=== PATIENT | female | born 1970 | race Caucasian/White ===

== ENCOUNTER 2017-09-11 12:32 | Emergency (ER) | payer SELFPAY ==
--- NOTE | 2017-09-11 13:52 | RAD ---
TWO VIEWS OF THE CHEST: COMPARISON: 12/09/07. HISTORY: Felling ill for 2 weeks. Body aches that are getting worse. Shortness of breath and cough. FINDINGS: Two views of the chest show normal sized cardiomediastinal silhouette. There is no evidence of consol idation, mass, or pleural effusion. The bones are unremarkable. IMPRESSION: No evidence of acute cardiopulmonary disease. POS: [facility]
[2017-09-11] MEDS ORDERED: Acetaminophen 500 MG TAB ONE (13:58)
== END 2017-09-11 14:43 | disposition home or self-care (01) ==
LOC: ERS 12:32
DX: J20.9 Acute bronchitis, unspecified (principal); F32.9 Major depressive disorder, single episode, unspecified
CPT/HCPCS: 71046; 87804

== ENCOUNTER 2017-11-05 16:15 | Emergency (ER) | payer SELFPAY ==
[2017-11-05] MEDS ORDERED: Ondansetron HCl/PF 4 MG/2 ML Vial ONE (16:44)
[2017-11-05] MEDS ORDERED: Morphine 4 MG/ML VIAL ONE (16:44)
[2017-11-05 17:00] LABS: #Basophils 0.1 thou/uL (0.0-0.2); #Eosinphils 0.3 thou/uL (0.0-0.7); #Lymphocytes 2.7 thou/uL (1.20-3.40); #Monocytes 0.5 thou/uL (0.11-0.59); #Neutrophils 6.2 thou/uL (1.40-6.50); %Eosinophils 3.1 % (0.0-10.0); %Lymphocytes 27.8 % (21.0-51.0); %Monocytes 5.3 % (0.0-10.0); %Neutrophils 62.9 % (42.0-75.0); Hemoglobin 14.1 g/dL (12.0-16.0); Mean Corpuscular HGB CONC 33.8 g/dL (32.0-36.0); Mean Corpuscular Hemoglobin 29.5 pg (27.0-31.0); Mean Corpuscular Volume 87.4 fl (81.0-99.0); Mean Platelet Volume 6.9 fL (7.4-10.4); Platelet Count 324 thou/uL (130-400); RBC Distribution Width 12.2 % (11.5-14.5); Red Blood Cell (RBC) Count 4.79 mill/uL (4.20-5.40); White Blood Cell (WBC) Count 9.9 thou/uL (4.8-10.8)
[2017-11-05 17:11] LABS: INR-International Normal Ratio 0.9; PTT 26.2 SEC (22.9-36.1); Prothrombin Time 12.3 SEC (12.0-14.7)
[2017-11-05 17:19] LABS: ALT (SGPT) 38 U/L (8-55); AST (SGOT) 22 U/L (5-34); Albumin 4.2 g/dL (3.5-5.0); Alkaline Phosphatase 107 U/L (40-150); Anion Gap 13 mmol/L (10-20); BUN (Urea Nitrogen) 15 mg/dL (7.0-18.7); Bilirubin, Total 0.3 mg/dL (0.2-1.2); Calc. Creatinine Clearance 0 mL/min (70-130); Calcium 9.3 mg/dL (7.8-10.44); Carbon Dioxide 24 mmol/L (22-29); Chloride 105 mmol/L (98-107); Estimated GFR-MDRD 76; Glucose 142 mg/dL (70-105); Potassium 4.1 mmol/L (3.5-5.1); Protein, Total 7.2 g/dL (6.0-8.3); Sodium 138 mmol/L (136-145)
[2017-11-05 17:21] LABS: Acetaminophen Less than 6.0 mcg/mL (10.0-30.0); Alcohol Less than 10 mg/dL (Less than 10); Salicylate Less than 8.0 mg/dL (15.0-30.0)
[2017-11-05 17:23] LABS: CKMB 1.2 ng/mL (0-6.6); Troponin I Less than 0.010 ng/mL (< 0.028)
--- NOTE | 2017-11-05 18:35 | RAD ---
PORTABLE UPRIGHT FRONTAL CHEST RADIOGRAPH: 11/05/17 COMPARISON: 10/05/16. HISTORY: Chest pain. FINDINGS: Stable prominence of the cardiac silhouette. Stable mild diffuse increased linear interstitial densit y. No pneumothorax, pleural fluid, focal consolidation or alveolar edema. IMPRESSION: No acute findings. POS: [facility]
[2017-11-05] MEDS ORDERED: HYDROcodone/Acetaminophen 5/325 mg Tablet ONE (19:11)
[2017-11-05] MEDS ORDERED: Amoxicillin/Potassium Clav 875 MG TAB ONE ×2 (19:46→20:20)
[2017-11-05] MEDS ORDERED: Ketorolac Tromethamine 30 MG/ML VIAL ONE (19:46)
[2017-11-05] MEDS ORDERED: Methocarbamol 500 MG TAB PO SCH (20:00)
[2017-11-05] MEDS ORDERED: Amoxicillin/Potassium Clav 875 MG TAB PO SCH (20:00)
== END 2017-11-05 20:28 | disposition home or self-care (01) ==
LOC: ERS 16:15
DX: H60.92 Unspecified otitis externa, left ear (principal); H83.02 Labyrinthitis, left ear; M54.30 Sciatica, unspecified side; M26.602 Left temporomandibular joint disorder, unspecified; F32.9 Major depressive disorder, single episode, unspecified
CPT/HCPCS: 71045; 80053; 80307; 82553; 84484; 85025; 85610; 85730; 93005; 96374; 96375; J1885; J2270; J2405

== ENCOUNTER 2018-03-01 08:42 | Emergency (ER) | payer SELFPAY ==
[2018-03-01 09:28] LABS: #Basophils 0.1 thou/uL (0.0-0.2); #Eosinphils 0.2 thou/uL (0.0-0.7); #Lymphocytes 2.8 thou/uL (1.20-3.40); #Monocytes 0.5 thou/uL (0.11-0.59); #Neutrophils 5.2 thou/uL (1.40-6.50); %Basophils 1.2 % (0.0-1.0); %Eosinophils 2.4 % (0.0-10.0); %Lymphocytes 32.3 % (21.0-51.0); %Monocytes 5.1 % (0.0-10.0); Hemoglobin 14.4 g/dL (12.0-16.0); Mean Corpuscular HGB CONC 33.8 g/dL (32.0-36.0); Mean Corpuscular Hemoglobin 29.3 pg (27.0-31.0); Mean Corpuscular Volume 86.6 fL (78.0-98.0); Mean Platelet Volume 6.9 fL (7.4-10.4); Platelet Count 345 thou/uL (130-400); RBC Distribution Width 12.4 % (11.5-14.5); Red Blood Cell (RBC) Count 4.91 mill/uL (4.20-5.40); White Blood Cell (WBC) Count 8.8 thou/uL (4.8-10.8)
--- NOTE | 2018-03-01 09:46 | RAD ---
CHEST 1 VIEW: Date: 03/01/18 HISTORY: 48-year-old female with history of chest pain. COMPARISON: 11/05/17. FINDINGS: Heart size is normal. There is some rotation to the right. No confluent pneumonia, overt edema, or pl eural effusion. IMPRESSION: No significant acute intrathoracic disease. Rotation to the right. Stable from prior study. Atheroscl erosis of aorta. POS: [facility]
[2018-03-01 09:51] LABS: ALT (SGPT) 47 U/L (8-55); AST (SGOT) 30 U/L (5-34); Albumin 4.4 g/dL (3.5-5.0); Alkaline Phosphatase 118 U/L (40-150); Anion Gap 14 mmol/L (10-20); BUN (Urea Nitrogen) 14 mg/dL (7.0-18.7); Bilirubin, Total 0.4 mg/dL (0.2-1.2); CK (CPK) 146 U/L (29-168); Calc. Creatinine Clearance 0 mL/min (70-130); Calcium 9.8 mg/dL (7.8-10.44); Carbon Dioxide 23 mmol/L (22-29); Chloride 104 mmol/L (98-107); Estimated GFR-MDRD 68; Globulin 3.3 g/dL (2.4-3.5); Glucose 166 mg/dL (70-105); Potassium 3.8 mmol/L (3.5-5.1); Protein, Total 7.7 g/dL (6.0-8.3); Sodium 137 mmol/L (136-145)
[2018-03-01] MEDS ORDERED: Aspirin 325 MG TAB ONE (09:52)
[2018-03-01 09:54] LABS: CKMB 1.2 ng/mL (0-6.6); Troponin I Less than 0.010 ng/mL (< 0.028)
[2018-03-01] MEDS ORDERED: Ketorolac Tromethamine 30 MG/ML VIAL ONE (10:19)
[2018-03-01] MEDS ORDERED: Ondansetron ODT 4 MG TAB ONE ×2 (10:19→13:02)
[2018-03-01] MEDS ORDERED: Ondansetron HCl/PF 4 MG/2 ML Vial ONE (13:02)
[2018-03-01] MEDS ORDERED: Acetaminophen 500 MG TAB ONE (13:02)
[2018-03-01 13:05] LABS: Troponin I Less than 0.010 ng/mL (< 0.028)
== END 2018-03-01 14:39 | disposition home or self-care (01) ==
LOC: ERS 08:42
DX: R07.89 Other chest pain (principal); F32.9 Major depressive disorder, single episode, unspecified
CPT/HCPCS: 36415; 71045; 80053; 82550; 82553; 84484; 85025; 93005; 96374; J1885; J2405; Q0162

== ENCOUNTER 2019-06-21 10:03 | Inpatient (IN) | payer SELFPAY ==
--- NOTE | 2019-06-21 10:47 | RAD ---
XR Chest 1 View Portable HISTORY: Lightheadedness. Blurred vision COMPARISON: 03/01/2018 FINDINGS: The heart size is enlarged. The lungs are well expanded without focal areas of consolidatio n, pneumothorax or pleural effusions. There is no evidence of jim pulmonary edema. IMPRESSION: No radiographic evidence of acute cardiopulmonary process.
[2019-06-21 10:48] LABS: #Basophils 0.1 thou/uL (0.0-0.2); #Eosinphils 0.2 thou/uL (0.0-0.7); #Lymphocytes 1.9 thou/uL (1.20-3.40); #Monocytes 0.4 thou/uL (0.11-0.59); #Neutrophils 4.3 thou/uL (1.40-6.50); %Basophils 1.6 % (0.0-1.0); %Eosinophils 2.7 % (0.0-10.0); %Lymphocytes 26.8 % (21.0-51.0); %Monocytes 6.2 % (0.0-10.0); %Neutrophils 62.7 % (42.0-75.0); Hemoglobin 15.9 g/dL (12.0-16.0); Mean Corpuscular HGB CONC 32.5 g/dL (32.0-36.0); Mean Corpuscular Hemoglobin 28.6 pg (27.0-31.0); Mean Corpuscular Volume 88.1 fL (78.0-98.0); Mean Platelet Volume 8.6 fL (7.4-10.4); Platelet Count 284 thou/uL (130-400); RBC Distribution Width 12.5 % (11.5-14.5); Red Blood Cell (RBC) Count 5.56 mill/uL (4.20-5.40); White Blood Cell (WBC) Count 6.9 thou/uL (4.8-10.8)
[2019-06-21 10:56] LABS: BHCG - Serum Negative (NEGATIVE)
[2019-06-21 10:57] LABS: Pregs Control Background? CLEAR/WHITE (CLR/WHITE); Pregs Control Bar Appear? YES (CONTROL BAR)
[2019-06-21 11:02] LABS: Base Excess-Venous -3.6 mmol/L (-2.0 to 3.0); Bicarbonate (HCO3v) 21.8 mmol/L (22.0-28.0); Calcium, Ionized 1.12 mmol/L (See Comments:); Chloride 97 mmol/L (98-107); Hemoglobin - Calc 15.4 g/dL (12.0-16.0); Potassium 4.5 mmol/L (3.5-5.1); Sodium 131 mmol/L (138-145); vO2 Saturation-calc 55.1 % (60.0-85.0)
[2019-06-21 11:11] LABS: CKMB 1.5 ng/mL (0-6.6)
[2019-06-21 11:25] LABS: ALT (SGPT) 37 U/L (8-55); AST (SGOT) 27 U/L (5-34); Albumin 4.8 g/dL (3.5-5.0); Alkaline Phosphatase 177 U/L (40-110); Anion Gap 23 mmol/L (10-20); BUN (Urea Nitrogen) 8 mg/dL (7.0-18.7); Bilirubin, Total 0.6 mg/dL (0.2-1.2); CK (CPK) 116 U/L (29-168); Calc. Creatinine Clearance 0 mL/min (70-130); Calcium 9.9 mg/dL (7.8-10.44); Carbon Dioxide 19 mmol/L (22-29); Chloride 90 mmol/L (98-107); Estimated GFR-MDRD 36; Lipase 44 U/L (8-78); Magnesium 2.1 mg/dL (1.6-2.6); Phosphorus 3.5 mg/dL (2.3-4.7); Potassium 4.2 mmol/L (3.5-5.1); Protein, Total 8.8 g/dL (6.0-8.3); Sodium 128 mmol/L (136-145)
[2019-06-21 11:27] LABS: Bacteria/HPF None Seen HPF (None Seen); Bilirubin Negative (Negative); Blood, Urine Negative (Negative); Clarity Clear (Clear); Glucose, Urine (Dipstick) Greater than 1000 mg/dL (Negative); Leukocyte 250 Leu/uL (Negative); Nitrite Negative (Negative); Protein, Urine (Dipstick) Negative (Neg-Trace); Urobilinogen Normal mg/dL (Less than 2); Yeast-Budding Rare HPF (None Seen)
[2019-06-21 11:42] LABS: Glucose 747 mg/dL (70-105)
[2019-06-21] MEDS ORDERED: HUMULIN R 100 UNITS in Sodium Chloride 0.9% 100 ML IVPB SCH ×3 (12:07→16:45)
[2019-06-21] MEDS ORDERED: Dextrose 5% in Water 1,000 ML IV PRN ×3 (12:07→17:50)
[2019-06-21] MEDS ORDERED: Dextrose 50% Abboject 50 ML SYRINGE SLOW IVP PRN ×2 (12:07→14:17)
[2019-06-21] MEDS ORDERED: NS 0.9% w/ 20 MEQ KCL 1,000 ML/1,000 ML BAG IV PRN ×2 (14:17)
[2019-06-21] MEDS ORDERED: Dextrose 5 %-0.45 % NaCl 1,000 ML IV PRN ×2 (14:17→16:32)
[2019-06-21] MEDS ORDERED: Sodium Chloride 0.9% 1,000 ML IV PRN ×8 (14:17→16:32)
[2019-06-21] MEDS ORDERED: D5 1/2 NS w/20 mEq KCL 1,000 ML IV PRN ×2 (14:17→16:32)
[2019-06-21] MEDS ORDERED: Potassium Phosphate 12 MMOL in Sodium Chloride 0.9% 250 ML 250 ML IV PRN ×2 (14:18→16:55)
[2019-06-21] MEDS ORDERED: Ondansetron PF 4 MG/2 ML Vial IVP PRN ×2 (14:18→16:34)
[2019-06-21] MEDS ORDERED: Potassium Chloride 20 MEQ TAB PO PRN ×2 (14:18→16:55)
[2019-06-21] MEDS ORDERED: PHOS-NAK 1 PKT PACK PO PRN ×4 (14:18→16:55)
[2019-06-21] MEDS ORDERED: Magnesium Oxide 400 MG TAB PO PRN ×4 (14:18→16:55)
[2019-06-21] MEDS ORDERED: CCU ELECTROLYTE REPLACEMENT PROTOCOL FS PRN ×2 (14:18→16:55)
[2019-06-21] MEDS ORDERED: Sodium Chloride 0.9% 1,000 ML IV SCH (14:18)
[2019-06-21] MEDS ORDERED: Potassium Phosphate 9 MMOL in Sodium Chloride 0.9% 100 ML IVPB PRN ×2 (14:18→16:55)
[2019-06-21] MEDS ORDERED: Potassium Phosphate 15 MMOL in Sodium Chloride 0.9% 250 ML 250 ML IV PRN ×2 (14:18→16:55)
[2019-06-21] MEDS ORDERED: Magnesium 2 GM/50 ML 2 GM in Premix Bag 1 BAG IVPB PRN ×2 (14:18→16:55)
[2019-06-21] MEDS ORDERED: Potassium Chloride 40 MEQ in Premix Bag 1 BAG IVPB PRN ×2 (14:18→16:55)
[2019-06-21] MEDS ORDERED: Potassium Chloride 40 MEQ in Sodium Chloride 0.9% 250 ML 250 ML IVPB PRN ×2 (14:18→16:55)
[2019-06-21] MEDS ORDERED: Ondansetron ODT 4 MG TAB SL PRN (14:18)
[2019-06-21] MEDS ORDERED: ADD ELECTROLYTE REPLACEMENT SET TO PROFILE FS SCH (14:30)
[2019-06-21] MEDS ORDERED: Insulin Regular 300 UNITS/3 ML VIAL IVP SCH (14:30)
[2019-06-21 15:02] VITALS: BMI 29.8
[2019-06-21 15:13] LABS: Lactic Acid 1.4 mmol/L (0.5-2.2)
[2019-06-21] MEDS ORDERED: CCU Electrolyte Replacement 1 EACH IVPB ONE (16:32)
[2019-06-21] MEDS ORDERED: NS 0.9% w/ 20 MEQ KCL 1,000 ML IV PRN ×2 (16:32)
[2019-06-21] MEDS ORDERED: Acetaminophen 325 MG TAB PO PRN (16:34)
[2019-06-21] MEDS ORDERED: Calcium Carbonate 500 MG ChewTAB PO PRN (16:34)
[2019-06-21] MEDS ORDERED: Ondansetron ODT 4 MG TAB PO PRN (16:34)
[2019-06-21 17:10] LABS: Hemoglobin A1c 12.1 % (4.0-6.0)
[2019-06-21 17:18] LABS: Anion Gap 17 mmol/L (10-20); BUN (Urea Nitrogen) 7 mg/dL (7.0-18.7); Calc. Creatinine Clearance 107 mL/min (70-130); Calcium 8.9 mg/dL (7.8-10.44); Carbon Dioxide 19 mmol/L (22-29); Chloride 104 mmol/L (98-107); Estimated GFR-MDRD 63; Glucose 238 mg/dL (70-105); Magnesium 1.8 mg/dL (1.6-2.6); Potassium 3.9 mmol/L (3.5-5.1); Sodium 136 mmol/L (136-145)
[2019-06-21 17:29] LABS: Phosphorus 1.7 mg/dL (2.3-4.7)
[2019-06-21] MEDS ORDERED: DC Electrolyte Protocol FS ONE (17:50)
[2019-06-21] MEDS ORDERED: cloNIDine 0.1 MG TAB PO PRN (17:54)
[2019-06-21] MEDS ORDERED: Cyclobenzaprine 10 MG TAB PO PRN (17:54)
[2019-06-21] MEDS ORDERED: NPH, Human Insulin Isophane 300 UNIT/3 ML VIAL SC SCH (18:00)
[2019-06-21] MEDS ORDERED: K-Phos Neutral 250 MG TAB PO SCH (18:00)
[2019-06-21] MEDS: 1/2 NS w/KCL 20 mEq 1,000 ML IV SCH (18:18)
[2019-06-21] MEDS: busPIRone HCl 10 MG TAB PO SCH (20:06)
[2019-06-21] MEDS: Nystatin Powder 15 GM BOT TOP SCH (20:06)
[2019-06-21] MEDS: FLUoxetine HCl 20 MG CAP PO SCH (20:06)
--- NOTE | 2019-06-21 22:09 | HP ---
PRIMARY CARE: [facility]. CHIEF COMPLAINT: Generalized weakness. HISTORY OF PRESENT ILLNESS: The patient is a 49-year-old white female who presented to the emergency room with generalized weakness. Over the last 2 weeks, the patient has been feeling generally weak, fatigue along with blurriness of vision. She has been drinking more than 2 gallons of water and has been urinating a lot. She also noticed that appetite has increased. She denies significant weight loss. She has been having on and off blurriness of vision that got worse today. She has been feeling lightheaded, dizzy; however, denies any vertigo or syncope. No chest pain, palpitations, or shortness of breath reported. PAST MEDICAL HISTORY: 1. Anxiety. 2. Depression. 3. History of mitral valve prolapse. 4. History of ovarian cyst. PAST SURGICAL HISTORY: 1. Appendectomy. 2. Cholecystectomy. 3. Hysterectomy. 4. Eleventh finger removed at the age of 6. ALLERGIES: NO KNOWN DRUG ALLERGIES. CURRENT HOME MEDICATIONS: 1. Fluoxetine 20 mg b.i.d. 2. Flexeril 10 mg 3 times daily as needed. 3. BuSpar 10 mg b.i.d. SOCIAL HISTORY: The patient currently lives at home with her family. No current use of smoking, alcohol, or drug use. She is full code. FAMILY HISTORY: Positive for diabetes mellitus type 2 in both the parents. REVIEW OF SYSTEMS: All other review of systems reviewed and found negative. PHYSICAL EXAMINATION: VITAL SIGNS: Temperature 99.1, pulse rate of 105 blood pressure 176/103 with O2 saturation 97% on room air. GENERAL: A 49-year-old female with generalized weakness. Denies any pain. HEENT: Head, atraumatic and normocephalic. Sclerae anicteric. Dry mucous membranes. No oral lesion. NECK: Supple. No JVD appreciated. No carotid bruit. LUNGS: Clear to auscultation bilaterally. No wheezing, rales, or rhonchi. HEART: S1 and S2 present, tachycardic. No rubs or gallops. ABDOMEN: Soft, obese. Bowel sounds present. No rebound or guarding. EXTREMITIES: No edema or calf tenderness. NEUROLOGIC: Grossly nonfocal, moves all 4 extremities. Power was 5/5 in all extremities. Pupils were equally reacting to light. Visual blurring has significantly improved. PSYCHIATRY: Alert, awake, oriented x3. SKIN: Warm and dry. LYMPH NODES: No palpable lymph nodes in the neck. PERIPHERAL VASCULAR: Radial pulses palpable bilaterally. MUSCULOSKELETAL: No joint swelling or tenderness. LABORATORY FINDINGS: EKG by my review showed sinus tachycardia. Basic metabolic profile showed sodium 128, potassium 4.2, chloride 90, bicarb 19 , anion gap 23, BUN 8, creatinine 1.52, blood glucose of 747. test was negative. WBC 6.9 without any left shift. Urinalysis showed 7 to 10 wbc's without any bacteria, ketones were 4.06. IMAGING STUDIES: Chest x-ray by my review was negative for infiltrate or edema. IMPRESSION: 1. Diabetic ketoacidosis. 2. New onset diabetes mellitus type 2. Her hemoglobin A1c was 12.1. 3. Lactic acidosis secondary to intravascular volume depletion. 4. Hyponatremia secondary to dehydration. 5. Hypophosphatemia. Phosphorus was 1.7. 6. Acute kidney injury on chronic kidney disease, stage 2 secondary to dehydration from polyuria. 7. Anxiety. 8. Depression, mild, stable. 9. Sinus tachycardia secondary to dehydration. PLAN: The patient will be monitored in the intermediate care unit. We will start her on insulin drip along with IV fluids per DKA protocol. Electrolytes will be replaced. We will rehabilitation counselor the patient on diabetes. Consult dietitian. Insulin self administration teaching. Recheck labs in a.m. We will also check basic metabolic profile every 4 hours while on insulin drip. The patient was extensively counseled on diabetes as well as consequences from uncontrolled diabetes. Plan of care was discussed with the patient in detail. She stated understanding. Job ID: [id number] [facility]
[2019-06-22] MEDS: Insulin Regular 300 UNITS/3 ML VIAL SC PRN ×6 (01:50→20:40)
[2019-06-22] MEDS: 1/2 NS w/KCL 20 mEq 1,000 ML IV SCH ×2 (05:07→15:46)
[2019-06-22 05:42] LABS: #Basophils 0.1 thou/uL (0.0-0.2); #Eosinphils 0.4 thou/uL (0.0-0.7); #Lymphocytes 2.7 thou/uL (1.20-3.40); #Monocytes 0.4 thou/uL (0.11-0.59); #Neutrophils 2.9 thou/uL (1.40-6.50); %Basophils 1.5 % (0.0-1.0); %Eosinophils 5.7 % (0.0-10.0); %Lymphocytes 41.9 % (21.0-51.0); %Monocytes 5.9 % (0.0-10.0); %Neutrophils 45.1 % (42.0-75.0); Hemoglobin 13.5 g/dL (12.0-16.0); Mean Corpuscular HGB CONC 33.6 g/dL (32.0-36.0); Mean Corpuscular Hemoglobin 29.1 pg (27.0-31.0); Mean Corpuscular Volume 86.7 fL (78.0-98.0); Mean Platelet Volume 8.3 fL (7.4-10.4); Platelet Count 230 thou/uL (130-400); RBC Distribution Width 12.3 % (11.5-14.5); Red Blood Cell (RBC) Count 4.63 mill/uL (4.20-5.40); White Blood Cell (WBC) Count 6.5 thou/uL (4.8-10.8)
[2019-06-22 06:03] LABS: Phosphorus 3.1 mg/dL (2.3-4.7)
[2019-06-22 06:09] LABS: Anion Gap 15 mmol/L (10-20); BUN (Urea Nitrogen) 7 mg/dL (7.0-18.7); Calc. Creatinine Clearance 122 mL/min (70-130); Calcium 8.5 mg/dL (7.8-10.44); Carbon Dioxide 21 mmol/L (22-29); Chloride 101 mmol/L (98-107); Estimated GFR-MDRD 73; Glucose 342 mg/dL (70-105); Magnesium 1.8 mg/dL (1.6-2.6); Potassium 3.8 mmol/L (3.5-5.1); Sodium 133 mmol/L (136-145)
[2019-06-22] MEDS: busPIRone HCl 10 MG TAB PO SCH ×2 (08:58→20:37)
[2019-06-22] MEDS: FLUoxetine HCl 20 MG CAP PO SCH ×2 (08:58→20:38)
[2019-06-22] MEDS: Famotidine 20 MG TAB PO SCH (08:58)
[2019-06-22] MEDS: K-Phos Neutral 250 MG TAB PO SCH ×3 (08:59→16:52)
[2019-06-22] MEDS ORDERED: NPH, Human Insulin Isophane 300 UNIT/3 ML VIAL SC SCH ×3 (09:00→21:00)
[2019-06-22] MEDS ORDERED: FLU VACC QS2019-20(6MOS UP)/PF 60 MCG/0.5 ML SYRINGE IM ONE (09:00)
[2019-06-22] MEDS: Nystatin Powder 15 GM BOT TOP SCH ×2 (13:42→20:50)
[2019-06-22] MEDS ORDERED: glipiZIDE 5 MG TAB PO SCH (18:30)
[2019-06-22] MEDS: NPH, Human Insulin Isophane 300 UNIT/3 ML VIAL SC SCH (20:39)
--- NOTE | 2019-06-22 23:26 | PDOC.HOSPP ---
- Subjective Encounter Date: 06/22/19 Encounter Time: 18:00 Subjective: Patient seen and examined for DKA. Diarrhea +. No new complaints. No overnight events - Objective Vital Signs & Weight: Vital Signs (12 hours) Temp Pulse Resp BP Pulse Ox 06/22/19 20:35 96 06/22/19 20:30 98.1 F 104 H 18 122/82 96 06/22/19 13:45 98.1 F 104 H 18 127/80 94 L 06/22/19 11:44 97.4 F L Weight Weight 207 lb 14.334 oz Most Recent Monitor Data Heart Rate from ECG 97 NIBP 117/75 NIBP BP-Mean 89 Respiration from ECG 17 SpO2 97 I&O: 06/21/19 06/22/19 06/23/19 06:59 06:59 06:59 Intake Total 2990 360 Output Total 350 Balance 2640 360 Result Diagrams: 06/22/19 05:16 06/22/19 05:16 Additional Labs: Accuchecks 06/22/19 06/22/19 06/22/19 20:23 16:51 12:05 POC Glucose 231 H 300 H 316 H 06/22/19 06/22/19 06/22/19 08:07 04:41 01:09 POC Glucose 230 H 306 H 322 H 06/21/19 06/21/19 14:18 10:24 POC Glucose 418 H Greater than 550 H* Hospitalist ROS - Review of Systems Respiratory: denies: cough, dry, shortness of breath, hemoptysis, SOB with excertion, pleuritic pain, sputum, wheezing, other Cardiovascular: denies: chest pain, palpitations, orthopnea, paroxysmal noc. dyspnea, edema, light headedness, other - Medication Medications: Active Medications Generic Name Dose Route Start Last Admin Trade Name Freq PRN Reason Stop Dose Admin Acetaminophen 650 mg 06/21/19 16:34 06/21/19 20:22 Tylenol PO 650 mg Q4H PRN Administration Headache/Fever/Mild Pain (1-3) Buspirone HCl 10 mg 06/21/19 21:00 06/22/19 20:37 Buspar PO 10 mg BID VERO Administration Famotidine 20 mg 06/22/19 09:00 06/22/19 08:58 Pepcid PO 20 mg DAILY VERO Administration Fluoxetine HCl 20 mg 06/21/19 21:00 06/22/19 20:38 Prozac PO 20 mg BID VERO Administration Potassium Chloride/Dextrose/Sod Cl 1,000 mls @ 250 mls/hr 06/21/19 16:32 18:11 D5 1/2 Ns W/20 Meq Kcl IV 1,000 mls .Q4H PRN Administration Step 4 of DKA Protocol Protocol Potassium Chloride/Sodium Chloride 1,000 mls @ 125 mls/hr 06/21/19 18:00 09/09 15:46 1/2 Ns W/Kcl 20 Meq IV 1,000 mls .Q8H VERO Administration Insulin Human NPH 15 unit 06/22/19 21:00 06/22/19 20:39 Humulin N SC 15 unit QPM VERO Administration Insulin Human Regular 0 units 06/21/19 17:50 06/22/19 16:56 Humulin R SC 6 unit .MODERATE SLIDING SC PRN Administration Moderate Correctional Scale Insulin Human Regular 0 units 06/21/19 17:50 06/22/19 20:40 Humulin R SC 2 unit .BEDTIME SLIDING SC PRN Administration Bedtime Correctional Scale Nystatin 0 gm 06/21/19 21:00 06/22/19 20:50 Mycostatin Powder TOP 1 applic BID VERO Administration - Exam General Appearance: NAD Heart: RRR, no rubs Respiratory: CTAB, no rales Gastrointestinal: soft, non-distended Extremities: no edema Hosp A/P - Plan DVT proph w/SCDs 1. Diabetic ketoacidosis. 2. New onset diabetes mellitus type 2. Hb A1c was 12.1. 3. Lactic acidosis secondary to intravascular volume depletion. 4. Hyponatremia secondary to dehydration. 5. Hypophosphatemia. Phosphorus was 1.7. 6. ALONDRA on CKD 2 7. Anxiety. 8. Depression, mild, stable. 9. Sinus tachycardia secondary to dehydration. PLAN: Increase NPH dose Add Glipizide May need Metformin once diarrhea resolves - Will dc [facility] AM labs Cont IVF
[2019-06-23] MEDS: 1/2 NS w/KCL 20 mEq 1,000 ML IV SCH ×4 (00:10→20:44)
[2019-06-23] MEDS: Insulin Regular 300 UNITS/3 ML VIAL SC PRN ×5 (00:11→20:40)
[2019-06-23] MEDS: glipiZIDE 5 MG TAB PO SCH ×2 (08:09→16:04)
[2019-06-23] MEDS: busPIRone HCl 10 MG TAB PO SCH ×2 (08:09→20:32)
[2019-06-23] MEDS: Famotidine 20 MG TAB PO SCH (08:09)
[2019-06-23] MEDS: FLUoxetine HCl 20 MG CAP PO SCH ×2 (08:09→20:32)
[2019-06-23] MEDS: NPH, Human Insulin Isophane 300 UNIT/3 ML VIAL SC SCH ×2 (08:09→20:39)
[2019-06-23] MEDS: Nystatin Powder 15 GM BOT TOP SCH ×2 (08:13→20:34)
[2019-06-23 08:50] LABS: Anion Gap 12 mmol/L (10-20); BUN (Urea Nitrogen) 5 mg/dL (7.0-18.7); Calc. Creatinine Clearance 137 mL/min (70-130); Calcium 8.6 mg/dL (7.8-10.44); Carbon Dioxide 25 mmol/L (22-29); Chloride 102 mmol/L (98-107); Estimated GFR-MDRD 83; Glucose 248 mg/dL (70-105); Magnesium 1.8 mg/dL (1.6-2.6); Phosphorus 3.4 mg/dL (2.3-4.7); Potassium 3.9 mmol/L (3.5-5.1); Sodium 135 mmol/L (136-145)
--- NOTE | 2019-06-23 15:40 | PDOC.HOSPP ---
- Subjective Encounter Date: 06/23/19 Encounter Time: 09:40 Subjective: Pt seen for followup re: DM II. Feels better, no complaints. - Objective Vital Signs & Weight: Vital Signs (12 hours) Temp Pulse Resp BP Pulse Ox 06/23/19 08:00 92 L 06/23/19 07:47 98 F 98 18 124/82 92 L Weight Weight 207 lb 14.334 oz Most Recent Monitor Data Heart Rate from ECG 97 NIBP 117/75 NIBP BP-Mean 89 Respiration from ECG 17 SpO2 97 I&O: 06/22/19 06/23/19 06/24/19 06:59 06:59 05:59 Intake Total 2990 2660 480 Output Total 350 Balance 2640 2660 480 Result Diagrams: 06/22/19 05:16 06/23/19 07:15 Additional Labs: Accuchecks 06/23/19 06/23/19 06/22/19 11:49 04:31 20:23 POC Glucose 256 H 229 H 231 H 06/22/19 16:51 POC Glucose 300 H Labs and MARs reviewed by mt Hospitalist ROS - Review of Systems Cardiovascular: denies: chest pain, palpitations, orthopnea, paroxysmal noc. dyspnea, edema, light headedness Gastrointestinal: denies: nausea, vomiting, abdominal pain, diarrhea, constipation, melena, hematochezia - Medication Medications: Active Medications Generic Name Dose Route Start Last Admin Trade Name Freq PRN Reason Stop Dose Admin Acetaminophen 650 mg 06/21/19 16:34 06/21/19 20:22 Tylenol PO 650 mg Q4H PRN Administration Headache/Fever/Mild Pain (1-3) Buspirone HCl 10 mg 06/21/19 21:00 06/23/19 08:09 Buspar PO 10 mg BID VERO Administration Famotidine 20 mg 06/22/19 09:00 06/23/19 08:09 Pepcid PO 20 mg DAILY VERO Administration Fluoxetine HCl 20 mg 06/21/19 21:00 06/23/19 08:09 Prozac PO 20 mg BID VERO Administration Glipizide 5 mg 06/23/19 07:30 06/23/19 08:09 Glucotrol PO 5 mg BID-AC VERO Administration Potassium Chloride/Dextrose/Sod Cl 1,000 mls @ 250 mls/hr 06/21/19 16:32 18:11 D5 1/2 Ns W/20 Meq Kcl IV 1,000 mls .Q4H PRN Administration Step 4 of DKA Protocol Protocol Potassium Chloride/Sodium Chloride 1,000 mls @ 125 mls/hr 06/21/19 18:00 10/10 14:30 1/2 Ns W/Kcl 20 Meq IV 1,000 mls .Q8H VERO Administration Insulin Human NPH 15 unit 06/22/19 21:00 06/22/19 20:39 Humulin N SC 15 unit QPM VERO Administration Insulin Human NPH 25 unit 06/23/19 09:00 06/23/19 08:09 Humulin N SC 25 unit DAILY VERO Administration Insulin Human Regular 0 units 06/21/19 17:50 06/23/19 11:49 Humulin R SC 6 unit .MODERATE SLIDING SC PRN Administration Moderate Correctional Scale Insulin Human Regular 0 units 06/21/19 17:50 06/23/19 00:11 Humulin R SC 4 unit .BEDTIME SLIDING SC PRN Administration Bedtime Correctional Scale Nystatin 0 gm 06/21/19 21:00 06/23/19 08:13 Mycostatin Powder TOP 1 applic BID VERO Administration - Exam General Appearance: NAD Eye: anicteric sclera ENT: moist mucosa Neck: supple, symmetric Heart: RRR, no murmur Respiratory: CTAB, no wheezes Gastrointestinal: soft, non-tender Extremities: no cyanosis Musculoskeletal: no muscle wasting Psychiatric: normal affect, normal behavior Hosp A/P - Plan IMPRESSION: 1. New onset diabetes mellitus type 2. 2. Hyponatremia 3. CKD 2 4. Anxiety. 5. Depression, mild, stable. PLAN: Continue insulin. Continue Glipizide Cont IVF
[2019-06-24] MEDS: 1/2 NS w/KCL 20 mEq 1,000 ML IV SCH ×2 (04:31→14:21)
[2019-06-24] MEDS: Insulin Regular 300 UNITS/3 ML VIAL SC PRN ×3 (04:36→16:27)
[2019-06-24 07:13] LABS: Anion Gap 15 mmol/L (10-20); BUN (Urea Nitrogen) 5 mg/dL (7.0-18.7); Calc. Creatinine Clearance 113 mL/min (70-130); Calcium 9.3 mg/dL (7.8-10.44); Carbon Dioxide 25 mmol/L (22-29); Chloride 99 mmol/L (98-107); Estimated GFR-MDRD 67; Glucose 316 mg/dL (70-105); Sodium 135 mmol/L (136-145)
[2019-06-24] MEDS: glipiZIDE 5 MG TAB PO SCH ×2 (07:51→16:27)
[2019-06-24] MEDS: busPIRone HCl 10 MG TAB PO SCH ×2 (07:51→21:31)
[2019-06-24] MEDS: FLUoxetine HCl 20 MG CAP PO SCH ×2 (07:52→21:31)
[2019-06-24] MEDS: Famotidine 20 MG TAB PO SCH (07:52)
[2019-06-24] MEDS: NPH, Human Insulin Isophane 300 UNIT/3 ML VIAL SC SCH ×2 (07:54→21:31)
[2019-06-24] MEDS: Nystatin Powder 15 GM BOT TOP SCH ×2 (07:57→21:25)
--- NOTE | 2019-06-24 16:45 | PDOC.HOSPP ---
- Subjective Encounter Date: 06/24/19 Encounter Time: 09:00 Subjective: Pt seen for followup re: DM2. Feels well, no complaints. - Objective Vital Signs & Weight: Vital Signs (12 hours) Temp Pulse Resp BP Pulse Ox 06/24/19 08:00 94 L 06/24/19 07:32 97.9 F 97 18 120/87 94 L Weight Weight 207 lb 14.334 oz Most Recent Monitor Data Heart Rate from ECG 97 NIBP 117/75 NIBP BP-Mean 89 Respiration from ECG 17 SpO2 97 I&O: 06/23/19 06/24/19 06/25/19 07:59 06:59 06:59 Intake Total 480 Balance 480 Result Diagrams: 06/22/19 05:16 06/24/19 05:57 Additional Labs: Accuchecks 06/24/19 06/24/19 06/23/19 12:03 04:38 20:41 POC Glucose 282 H 278 H 276 H 06/23/19 00:04 POC Glucose 337 H Labs and MARs reviewed by sc Hospitalist ROS - Review of Systems Cardiovascular: denies: chest pain, palpitations, orthopnea, paroxysmal noc. dyspnea, edema, light headedness Gastrointestinal: denies: nausea, vomiting, abdominal pain, diarrhea, constipation, melena, hematochezia - Medication Medications: Active Medications Generic Name Dose Route Start Last Admin Trade Name Freq PRN Reason Stop Dose Admin Acetaminophen 650 mg 06/21/19 16:34 06/21/19 20:22 Tylenol PO 650 mg Q4H PRN Administration Headache/Fever/Mild Pain (1-3) Buspirone HCl 10 mg 06/21/19 21:00 06/24/19 07:51 Buspar PO 10 mg BID VERO Administration Famotidine 20 mg 06/22/19 09:00 06/24/19 07:52 Pepcid PO 20 mg DAILY VERO Administration Fluoxetine HCl 20 mg 06/21/19 21:00 06/24/19 07:52 Prozac PO 20 mg BID VERO Administration Glipizide 5 mg 06/23/19 07:30 06/24/19 16:27 Glucotrol PO 5 mg BID-AC VERO Administration Potassium Chloride/Dextrose/Sod Cl 1,000 mls @ 250 mls/hr 06/21/19 16:32 18:11 D5 1/2 Ns W/20 Meq Kcl IV 1,000 mls .Q4H PRN Administration Step 4 of DKA Protocol Protocol Insulin Human NPH 15 unit 06/22/19 21:00 06/23/19 20:39 Humulin N SC 15 unit QPM VERO Administration Insulin Human NPH 25 unit 06/23/19 09:00 06/24/19 07:54 Humulin N SC 25 unit DAILY VERO Administration Insulin Human Regular 0 units 06/21/19 17:50 06/24/19 16:27 Humulin R SC 6 unit .MODERATE SLIDING SC PRN Administration Moderate Correctional Scale Insulin Human Regular 0 units 06/21/19 17:50 06/23/19 20:40 Humulin R SC 3 unit .BEDTIME SLIDING SC PRN Administration Bedtime Correctional Scale Nystatin 0 gm 06/21/19 21:00 06/24/19 07:57 Mycostatin Powder TOP 1 applic BID VERO Administration - Exam General Appearance: NAD, awake alert Eye: anicteric sclera ENT: no oropharyngeal lesions Neck: supple, no carotid bruit Heart: RRR Respiratory: CTAB Gastrointestinal: soft, non-tender Extremities: no clubbing Musculoskeletal: normal strength Psychiatric: normal affect, normal behavior Hosp A/P - Plan out of bed/ambulate IMPRESSION: 1. New onset diabetes mellitus type 2. 2. Hyponatremia 3. CKD 2 4. Anxiety. 5. Depression, mild, stable. PLAN: Continue insulin. Continue Glipizide DC IV fluids. Discharge tomorrow - pt to follow up with [facility] for diabetes medications.
[2019-06-25] MEDS: Insulin Regular 300 UNITS/3 ML VIAL SC PRN ×2 (05:38→13:08)
[2019-06-25 05:51] LABS: Anion Gap 14 mmol/L (10-20); BUN (Urea Nitrogen) 9 mg/dL (7.0-18.7); Calc. Creatinine Clearance 124 mL/min (70-130); Calcium 8.9 mg/dL (7.8-10.44); Carbon Dioxide 24 mmol/L (22-29); Chloride 101 mmol/L (98-107); Estimated GFR-MDRD 74; Glucose 305 mg/dL (70-105); Potassium 4.2 mmol/L (3.5-5.1); Sodium 135 mmol/L (136-145)
[2019-06-25 07:54] VITALS: BP 132/84; TEMP 97.7
[2019-06-25] MEDS: Famotidine 20 MG TAB PO SCH (08:45)
[2019-06-25] MEDS: glipiZIDE 5 MG TAB PO SCH (08:46)
[2019-06-25] MEDS: busPIRone HCl 10 MG TAB PO SCH (08:46)
[2019-06-25] MEDS: FLUoxetine HCl 20 MG CAP PO SCH (08:46)
[2019-06-25] MEDS: Nystatin Powder 15 GM BOT TOP SCH (08:46)
[2019-06-25] MEDS: NPH, Human Insulin Isophane 300 UNIT/3 ML VIAL SC SCH (09:50)
--- NOTE | 2019-06-26 01:34 | DIS ---
DATE OF ADMISSION: 06/21/2019 DATE OF DISCHARGE: 06/25/2019 PRIMARY CARE PROVIDER: Gertrudis Brennan. DISCHARGE DIAGNOSES: 1. Diabetic ketoacidosis. 2. Newly diagnosed diabetes mellitus. 3. Acute kidney injury. 4. Hyponatremia. 5. Hypophosphatemia. 6. Lactic acidosis. CONDITION OF PATIENT ON THE DAY OF DISCHARGE: Stable. I assessed Ms. Guaman on the day of discharge. She denies any chest pain or shortness of breath. Vital signs are stable. S1 and S2 are heard, regular. Lungs are clear to auscultation bilaterally. POST DISCHARGE FOLLOWUP: The patient is advised to follow up with primary care provider at 3:45 pm on 06/25/2019. DISCHARGE MEDICATIONS: 1. Buspirone 10 mg 2 times a day. 2. Flexeril 10 mg 3 times a day as needed. 3. Fluoxetine 20 mg 2 times a day. 4. Glipizide 5 mg 2 times a day. 5. Humulin N 25 units in the morning and 15 units in the evening. HOSPITAL COURSE: Ms. Guaman is a pleasant 49-year-old lady, who was admitted to [facility] on 06/21/2019, for diabetic ketoacidosis. Hemoglobin A1c was 12.1. She improved with intravenous fluids and insulin. She has been switched over to subcutaneous insulin and glipizide. She is being discharged home in a stable condition. She will follow up with her primary care provider later today for medications and diabetes management. Many thanks for allowing me to participate in your patient's care. Please feel free to contact me with any questions or concerns. DISCHARGE DESTINATION: Home. TIME SPENT: Total amount of time spent coordinating this discharge: 32 minutes. Job ID: [id number]
== END 2019-06-25 13:28 | disposition home or self-care (01) | DRG 638 ==
LOC: ERS 10:03 → IMCU/EMU 14:37 → T4-A 06-22 14:54
PROVIDERS: ADMIT Internal Medicine; ATTEND Internal Medicine
DX: E11.10 Type 2 diabetes mellitus with ketoacidosis without coma (principal); N17.9 Acute kidney failure, unspecified; E87.1 Hypo-osmolality and hyponatremia; E87.2 Acidosis; E83.39 Other disorders of phosphorus metabolism; F31.9 Bipolar disorder, unspecified; E86.9 Volume depletion, unspecified; E86.0 Dehydration; N18.2 Chronic kidney disease, stage 2 (mild); Z79.4 Long term (current) use of insulin; Z90.49 Acquired absence of other specified parts of digestive tract; Z90.710 Acquired absence of both cervix and uterus; E11.22 Type 2 diabetes mellitus with diabetic chronic kidney disease
CPT/HCPCS: 36415; 36416; 71045; 80048; 80053; 81003; 81015; 82010; 82330; 82550; 82553; 82803; 83036; 83605; 83690; 83735; 83880; 83930; 84100; 84443; 84484; 84703; 85025; 85379; 93005; 96360; 96361; 96365; J1815; J3480; J3490

== ENCOUNTER 2020-04-23 21:01 | Emergency (ER) | payer SELFPAY ==
[2020-04-23] MEDS ORDERED: Ondansetron ODT 8 MG TAB ONE (21:48)
[2020-04-23] MEDS ORDERED: Ketorolac Tromethamine 30 MG/ML VIAL ONE (21:48)
== END 2020-04-23 22:52 | disposition home or self-care (01) ==
LOC: ERS 21:01
DX: R11.0 Nausea (principal); R51 Headache; T42.4X5A Adverse effect of benzodiazepines, initial encounter; F31.9 Bipolar disorder, unspecified; Z79.899 Other long term (current) drug therapy
CPT/HCPCS: 93005; 96372; J1885; Q0162

== ENCOUNTER 2022-10-25 09:05 | Observation (INO) | payer SELFPAY ==
[2022-10-25] MEDS ORDERED: Iopamidol-370 76% 500 ML 1 ML ONE (09:39)
[2022-10-25] MEDS ORDERED: Morphine 4 MG/ML VIAL ONE (09:43)
[2022-10-25] MEDS ORDERED: Ondansetron PF 4 MG/2 ML Vial ONE (09:43)
[2022-10-25] MEDS ORDERED: Aspirin Chewable 81 MG TAB ONE (09:43)
[2022-10-25 09:45] LABS: #Eosinphils 0.2 thou/uL (0.0-0.7); #Lymphocytes 2.4 thou/uL (1.20-3.40); #Monocytes 0.3 thou/uL (0.11-0.59); %Basophils 0.2 % (0.0-1.0); %Eosinophils 2.4 % (0.0-10.0); %Lymphocytes 30.1 % (21.0-51.0); %Monocytes 4.1 % (0.0-10.0); %Neutrophils 63.3 % (42.0-75.0); Hemoglobin 13.7 g/dL (12.0-16.0); Mean Corpuscular HGB CONC 32.2 g/dL (32.0-36.0); Mean Corpuscular Hemoglobin 28.7 pg (27.0-31.0); Mean Corpuscular Volume 89.2 fl (78.0-98.0); Mean Platelet Volume 7.7 fL (7.4-10.4); Platelet Count 329 10x3/uL (130-400); RBC Distribution Width 12.4 % (11.5-14.5); Red Blood Cell (RBC) Count 4.78 mill/uL (4.20-5.40); White Blood Cell (WBC) Count 7.9 10x3/uL (4.8-10.8)
[2022-10-25 10:08] LABS: ALT (SGPT) 36 U/L (8-55); AST (SGOT) 28 U/L (5-34); Albumin 4.2 g/dL (3.5-5.0); Alkaline Phosphatase 122 U/L (40-110); Anion Gap 14 mmol/L (10-20); BUN (Urea Nitrogen) 14 mg/dL (9.8-20.1); Bilirubin, Total 0.5 mg/dL (0.2-1.2); Calc. Creatinine Clearance 0 mL/min (70-130); Calcium 9.6 mg/dL (7.8-10.44); Carbon Dioxide 23 mmol/L (22-29); Chloride 103 mmol/L (98-107); Estimated GFR 79; Globulin 3.2 g/dL (2.4-3.5); Glucose 182 mg/dL (70-105); Magnesium 1.9 mg/dL (1.6-2.6); Protein, Total 7.4 g/dL (6.0-8.3); Sodium 136 mmol/L (136-145)
[2022-10-25 14:21] LABS: Troponin I Less than 0.010 ng/mL (< 0.028)
[2022-10-25] MEDS ORDERED: Moisturizing Cream (Eucerin) 113 GM JAR TOP PRN (14:27)
[2022-10-25] MEDS ORDERED: Acetaminophen 650 MG Suppository PR PRN (14:27)
[2022-10-25] MEDS ORDERED: Bisacodyl 5 MG TAB PO PRN (14:27)
[2022-10-25] MEDS ORDERED: Sodium Chloride 0.65% Nasal 44 ML BOT EA NARE PRN (14:27)
[2022-10-25] MEDS ORDERED: Cepastat Lozenges 1 LOZ PO PRN (14:27)
[2022-10-25] MEDS ORDERED: Labetalol HCl 100 MG/20 ML VIAL SLOW IVP PRN (14:27)
[2022-10-25] MEDS ORDERED: Senokot S 8.6-50 MG TAB PO PRN (14:27)
[2022-10-25] MEDS ORDERED: Artificial Tear Sol 15 ML BOT EA EYE PRN (14:27)
[2022-10-25] MEDS ORDERED: Dextrose 50% Abboject 50 ML SYRINGE SLOW IVP PRN (14:32)
[2022-10-25] MEDS ORDERED: HumaLOG 300 UNITS/3 ML VIAL SC PRN ×2 (14:32)
[2022-10-25] MEDS ORDERED: Dextrose 5% in Water 1,000 ML IV PRN (14:32)
[2022-10-25 14:54] LABS: INR-International Normal Ratio 0.9; Prothrombin Time 12.4 sec (12.0-14.7)
[2022-10-25 17:17] LABS: Troponin I Less than 0.010 ng/mL (< 0.028)
[2022-10-25 17:59] VITALS: BMI 40.4
[2022-10-25] MEDS: Acetaminophen 325 MG TAB PO PRN (18:14)
[2022-10-25] MEDS: metFORMIN 500 MG TAB PO SCH (18:14)
[2022-10-25] MEDS: Famotidine 20 MG TAB PO SCH (21:16)
[2022-10-25] MEDS: Atorvastatin Calcium 40 MG TAB PO SCH (21:16)
[2022-10-26 06:12] LABS: #Basophils 0.1 thou/uL (0.0-0.2); #Eosinphils 0.3 thou/uL (0.0-0.7); #Lymphocytes 2.7 thou/uL (1.20-3.40); #Monocytes 0.4 thou/uL (0.11-0.59); #Neutrophils 3.1 thou/uL (1.40-6.50); %Basophils 1.5 % (0.0-1.0); %Eosinophils 4.2 % (0.0-10.0); %Neutrophils 47.2 % (42.0-75.0); Hemoglobin 13.6 g/dL (12.0-16.0); Mean Corpuscular HGB CONC 32.4 g/dL (32.0-36.0); Mean Corpuscular Hemoglobin 29.6 pg (27.0-31.0); Mean Corpuscular Volume 91.1 fl (78.0-98.0); Mean Platelet Volume 7.8 fL (7.4-10.4); Platelet Count 288 10x3/uL (130-400); RBC Distribution Width 12.4 % (11.5-14.5); White Blood Cell (WBC) Count 6.6 10x3/uL (4.8-10.8)
[2022-10-26 06:17] LABS: Hemoglobin A1c 6.1 % (4.0-6.0)
[2022-10-26 06:31] LABS: Anion Gap 11 mmol/L (10-20); BUN (Urea Nitrogen) 12 mg/dL (9.8-20.1); Calc. Creatinine Clearance 141 mL/min (70-130); Calcium 9.1 mg/dL (7.8-10.44); Carbon Dioxide 27 mmol/L (22-29); Cardiac Risk 4.5 (Less than 4.5); Chloride 102 mmol/L (98-107); Cholesterol 135 mg/dl (< 200 Desired); Estimated GFR 72; Glucose 128 mg/dL (70-105); HDL Cholesterol 30 mg/dL (>60 Neg Risk); LDL Cholesterol, Calculated 72 mg/dL; Sodium 136 mmol/L (136-145); Triglycerides 165 mg/dL (Less than 150)
[2022-10-26] MEDS: Acetaminophen 325 MG TAB PO PRN ×2 (08:14→21:05)
[2022-10-26] MEDS: metFORMIN 500 MG TAB PO SCH ×2 (09:50→19:25)
[2022-10-26] MEDS: Aspirin 81 mg Enteric Coated Tablet PO SCH (09:50)
[2022-10-26] MEDS: Famotidine 20 MG TAB PO SCH ×2 (09:50→21:07)
[2022-10-26] MEDS ORDERED: Ibuprofen 600 MG TAB PO SCH (11:00)
[2022-10-26] MEDS ORDERED: SUMAtriptan Succinate 50 MG TAB PO PRN (13:40)
[2022-10-26] MEDS: Diclofenac 1% 100 GM GEL TP SCH ×2 (16:06→21:07)
[2022-10-26] MEDS: Ondansetron PF 4 MG/2 ML Vial IVP PRN (18:15)
[2022-10-26] MEDS: Atorvastatin Calcium 40 MG TAB PO SCH (21:07)
[2022-10-27] MEDS: metFORMIN 500 MG TAB PO SCH (08:08)
[2022-10-27] MEDS: Aspirin 81 mg Enteric Coated Tablet PO SCH (08:08)
[2022-10-27] MEDS: Diclofenac 1% 100 GM GEL TP SCH (08:08)
[2022-10-27] MEDS: Acetaminophen 325 MG TAB PO PRN (08:09)
[2022-10-27] MEDS: Famotidine 20 MG TAB PO SCH (08:15)
[2022-10-27] MEDS: Ondansetron PF 4 MG/2 ML Vial IVP PRN (08:46)
[2022-10-27 08:48] VITALS: BP 124/70; TEMP 97.9
[2022-10-27] MEDS ORDERED: Ketorolac Tromethamine 30 MG/ML VIAL IVP SCH (10:00)
== END 2022-10-27 10:37 | disposition home or self-care (01) ==
LOC: ERS 09:05 → ERHOLD 14:25 → NEURO 17:47
PROVIDERS: ADMIT Family Medicine; ATTEND Family Medicine
DX: M50.122 Cervical disc disorder at C5-C6 level with radiculopathy (principal); M47.26 Other spondylosis with radiculopathy, lumbar region; M51.16 Intervertebral disc disorders with radiculopathy, lumbar region; M51.37 Other intervertebral disc degeneration, lumbosacral region; I10 Essential (primary) hypertension; E11.9 Type 2 diabetes mellitus without complications; Z20.822 Contact with and (suspected) exposure to COVID-19; I08.1 Rheumatic disorders of both mitral and tricuspid valves; Z79.84 Long term (current) use of oral hypoglycemic drugs; Z79.899 Other long term (current) drug therapy
CPT/HCPCS: 36415; 36416; 70450; 70496; 70498; 70551; 71045; 72141; 72148; 80048; 80061; 83036; 83735; 84484; 85025; 85610; 85652; 93005; 93306; 96372; 96375; 96376; G0378; J1650; J1815; J1885; J2270; J2405; Q9967; U0003; U0005

== ENCOUNTER 2023-02-15 08:20 | Emergency (ER) | payer SELFPAY ==
[2023-02-15] MEDS ORDERED: Ibuprofen 800 MG TAB ONE (08:38)
== END 2023-02-15 09:30 | disposition home or self-care (01) ==
LOC: ERS 08:20
DX: S82.62XA Displaced fracture of lateral malleolus of left fibula, initial encounter for closed fracture (principal); E78.2 Mixed hyperlipidemia; E11.9 Type 2 diabetes mellitus without complications; Z79.899 Other long term (current) drug therapy; Z79.82 Long term (current) use of aspirin; W19.XXXA Unspecified fall, initial encounter
CPT/HCPCS: 27786